=== PATIENT | female | born 1950 | race African-American/Black ===

== ENCOUNTER 2017-03-12 16:59 | Emergency (ER) | payer OTHER ==
[~2017-03-12] VITALS: Ht 157.5 cm; Wt 59.0 kg
[~2017-03-12 16:59] MED LIST: FLEXERIL10 MG PO; ULTRAM(MONOGRAP50 MG PO
--- NOTE | 2017-03-12 18:11 | ED UPPER/LOWER EXTREMITY COMPL ---
History of Present Illness General Chief Complaint: Hip Injury Stated Complaint: RIGHT HIP PAIN Source: patient Exam Limitations: no limitations Vital Signs & Intake/Output Vital Signs & Intake/Output Vital Signs Date Time Temp Pulse Resp B/P B/P Pulse O2 O2 Flow FiO2 Mean Ox Delivery Rate 03/12 2044 98.7 80 18 130/83 99 Room Air 03/12 1721 98.9 80 18 129/80 100 Room Air Allergies Coded Allergies: NO KNOWN ALLERGIES (05/17/16) Reconcile Medications Ampicillin Trihydrate 250 MG CAPSULE 1 CAP PO PRN POST-COITAL (Reported) Cholecalciferol (Vitamin D3) (Vitamin D) (Unknown Strength) CAPSULE (Unknown Dose) PO DAILY SUPPLEMENT (Reported) Cyanocobalamin (Vitamin B-12) (Unknown Strength) TABLET (Unknown Dose) PO DAILY SUPPLEMENT (Reported) Gabapentin 300 MG CAPSULE 1 CAP PO BID NERVE PAIN (Reported) Lisinopril 20 MG TABLET 1 TAB PO DAILY BP (Reported) Metformin HCl 1,000 MG TABLET 1 TAB PO BID DM (Reported) Methocarbamol (Robaxin) 500 MG TABLET 1 TAB PO TID PRN muscle spasms Multivitamin (Multi-Day Vitamins) 1 EACH TABLET 1 TAB PO DAILY SUPPLEMENT ( Reported) Naproxen 500 MG TABLET 1 TAB PO BID PRN inflammation Oxycodone HCl/Acetaminophen (Percocet 5-325 MG Tablet) 5 MG-325 MG TABLET 1 TAB PO BID PRN pain Vitamin E Mixed (Vitamin E) (Unknown Strength) TABLET (Unknown Dose) PO DAILY SUPPLEMENT (Reported) Triage Note: PT TO ED FOR EXACERBATION OF CHRONIC R HIP PAIN, NO NEW INJURY OR TRAUMA. TOOK GABAPENTIN AT HOME WITH NO RELIEF. CORTISONE SHOT APPROX 1 MONTH AGO - HAS HAD AN OUTPATINET MRI ALREADY WELL. Triage Nurses Notes Reviewed? yes Onset: Gradual Duration: worse persistent since (1 DAY) Timing: recent history Severity: severe Severity Numbers: 10 Pain/Injury Location: Right: Hip. Method of Injury: unknown Modifying Factors: Improves With: immobilization. Worsens With: movement. HPI: Patient is a 66-year-old female with history of chronic low back pain and hip pain presenting to the emergency department with chief complaint of worsening right low back pain into the right hip that's been going on for the past 1-2 days. Denies any new injury. Pain is sharp and stabbing and radiating down the right leg. Denies any urinary incontinence or retention. Pain is worse with movement. Has been using [id number] medications like Tylenol without relief. Denies any abdominal pain. No nausea vomiting fevers or chills chest pain or shortness of breath. Denies any urinary frequency urgency or dysuria. No hematuria. (WERNER JAFFE) Past History Travel History Traveled to [place] past 21 day No Medical History Any Pertinent Medical History? 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 No (WERNER JAFFE) Review of Systems Review of Systems Constitutional: Reports: no symptoms. Comments Review of systems: See HPI, All other systems negative. Constitutional, no chills fever or weight loss HEENT: No visual changes no sore throat no congestion Cardiovascular: No chest pain ,palpitation Skin, no jaundice no rashes Respiratory: No dyspnea cough sputum or hemoptysis GI: No nausea no vomiting : No dysuria No hematuria Muscle skeletal: , no neck pain, Neurologic: No numbness no confusion NO MORALES Psych: No INCREASED stress anxiety Immunology: No splenectomy or history of AIDS (WERNER JAFFE) Physical Exam Physical Exam General Appearance: well developed/nourished, alert, awake, mild distress Comments: Well-developed well-nourished person in mild distress HEENT: Nose is atraumatic. External auditory canal and Tympanic membranes clear. Pharynx normal. No swelling or edema. Neck: Supple, no lymphadenopathy, normal range of motion without pain or tenderness no C-spine tenderness. Back: Tender to palpation over the lumbar paraspinal region on the right. Limited range of motion secondary to pain. Positive straight leg raise on the right. Cardiovascular: Regular rate and rhythms no murmurs rubs or gallops, normal JVP Respiratory: Chest nontender. No respiratory distress.breath sounds clear to auscultation bilaterally Abdomen: Soft, nontender nondistended Extremity: No edema, no calf tenderness to palpation, normal and equal pulses. Range of motion of right hip secondary to pain. Pain with right hip flexion and extension. Neuro: Alert oriented x3, motor sensory normal, patellar reflexes are 2+ bilaterally. Skin: No appreciable rash on exposed skin, skin is warm and dry. Psych: Mood and affect is normal, memory and judgment is normal. (WERNER JAFFE) Progress Differential Diagnosis: contusion, dislocation, fracture, sprain, tendon injury Plan of Care: Orders Procedure Date/time Status XRY-HIP 4 VIEWS UNI, RIGHT 03/12 1756 Active Diagnostic Imaging: Viewed by Me: Radiology Read. Discussed w/RAD: Radiology Read. Radiology Impression: PATIENT: KRISS HARRIS PRESENT AGE: 66 PATIENT ACCOUNT NO: [id number] : 48 LOCATION: [facility] ORDERING PHYSICIAN: GORDO DAVIS MD SERVICE DATE: 03/12/17 EXAM TYPE: RAD - XRY-HIP 2-3 VIEWS, RIGHT EXAMINATION: XR HIP, RIGHT CLINICAL INFORMATION: Pain COMPARISON: 10/28/2016 pelvic x-ray TECHNIQUE: 3 views of the right hip. FINDINGS: There is no acute fracture or dislocation of the right hip. The right femoral head is well aligned within the acetabulum. The left hip joint is unremarkable seen on the frontal view of the pelvis. Sacralization of right L5 transverse processes noted. Pelvic phleboliths are seen. IMPRESSION: Unremarkable right hip x-ray. DICTATED BY: DU MIDDLETON MD DATE/TIME DICTATED :03/12/172002 DENTIST PRIVATE PRACTICE:[facility] DATE/TIME TRANSCRIBED:03/12/172002 CONFIDENTIAL, DO NOT COPY WITHOUT APPROPRIATE AUTHORIZATION. < Electronically signed in Other Vendor System> SIGNED BY: DU MIDDLETON MD 03/12/172011 Comments: No acute findings on x-ray. Likely sciatica causing hip pain. She'll follow-up with her primary care physician. Much improvement after by mouth pain medication. (WERNER JAFFE) Departure Departure Time of Disposition: 2024 Disposition: HOME OR SELF CARE Condition: Stable Clinical Impression Primary Impression: Sciatica Qualifiers: Laterality: right Qualified Code: M54.31 - Sciatica, right side Referrals: DIPAK LONG,YESSENIA RUANO MD,JASSI Marquis (PCP/Family) Additional Instructions: Follow-up with your primary care physician as well as your orthopedic call to make an appointment. Take muscle relaxer, pain medication and anti-inflammatory as prescribed. Return for worsening symptoms or concerns. Avoid heavy lifting Departure Forms: Customer Survey General Discharge Information Prescriptions: Current Visit Scripts Naproxen 1 TAB PO BID PRN inflammation #10 TAB Oxycodone HCl/Acetaminophen (Percocet 5-325 MG Tablet) 1 TAB PO BID PRN pain #10 TAB Methocarbamol (Robaxin) 1 TAB PO TID PRN muscle spasms #10 TAB (WERNER JAFFE) PA/NEUROPATHOLOGIST Co-Sign Statement Statement: ED Attending supervision documentation- [X] I saw and evaluated the patient. I have also reviewed all the pertinent lab results and diagnostic results. I agree with the findings and the plan of care as documented in the PA's/NEUROPATHOLOGIST's documentation. [X] I have reviewed the ED Record and agree with the PA's/NEUROPATHOLOGIST's documentation. [] Additions or exceptions (if any) to the PAs/NEUROPATHOLOGIST's note and plan are summarized below: [] (JOSEPHINE LONG,NELLIE)
[2017-03-12] MEDS ORDERED: GABAPENTIN300 M2 PO (19:49)
[2017-03-12] MEDS ORDERED: METFORMIN HCL1000 M1 PO (19:49)
[2017-03-12] MEDS ORDERED: LISINOPRIL20 M1 PO (19:49)
[2017-03-12] MEDS ORDERED: AMPICILLIN TRI250 MG PO (19:50)
[2017-03-12] MEDS ORDERED: MULTI-DAY VITA1 EACH PO (19:50)
[2017-03-12] MEDS ORDERED: VITAMIN E100 UNI2 PO (19:51)
[2017-03-12] MEDS ORDERED: VITAMIN D2000 UNIT PO (19:51)
[2017-03-12] MEDS ORDERED: VITAMIN B-121000 MC3 PO (19:51)
--- NOTE | 2017-03-12 20:12 | RADIOLOGY REPORT ---
EXAMINATION: XR HIP, RIGHT CLINICAL INFORMATION: Pain COMPARISON: 10/28/2016 pelvic x-ray TECHNIQUE: 3 views of the right hip. FINDINGS: There is no acute fracture or dislocation of the right hip. The right femoral head is well aligned within the acetabulum. The left hip joint is unremarkable seen on the frontal view of the pelvis. Sacralization of right L5 transverse processes noted. Pelvic phleboliths are seen. IMPRESSION: Unremarkable right hip x-ray.
[2017-03-12] MEDS ORDERED: NAPROXEN500 M2 PO (20:28)
[2017-03-12] MEDS ORDERED: ROBAXIN500 M1 PO (20:28)
[2017-03-12] MEDS ORDERED: PERCOCET 5-3251 EACH PO (20:28)
[2017-03-12 20:44] VITALS: BP 130/83
== END 2017-03-12 20:44 ==
LOC: ERH 16:59
DX: M54.41 Lumbago with sciatica, right side (principal)
CPT/HCPCS: 73502-RT

== ENCOUNTER → 2017-11-15 | Day surgery (SDC) | payer OTHER ==
[~2017-11-15] VITALS: Ht 154.9 cm; Wt 59.9 kg
[~2017-11-15] MED LIST changes: +AMPICILLIN TRI250 MG PO; +GABAPENTIN300 M2 PO; +LISINOPRIL20 M1 PO; +METFORMIN HCL1000 M1 PO; +MULTI-DAY VITA1 EACH PO; +NAPROXEN500 M2 PO; +PERCOCET 5-3251 EACH PO; +ROBAXIN500 M1 PO; +VITAMIN B-121000 MC3 PO; +VITAMIN D2000 UNIT PO; +VITAMIN E100 UNI2 PO
--- NOTE | 2017-11-15 06:38 | History & Physical Pre-Op ---
General Information and HPI History of Present Illness: Sowmay is a 66-year-old female with a long-standing and worsening complaint of pain to her right forefoot and a painful hammertoe left foot. The patient has undergone an extended course of conservative care, including shoe gear and activity modification, rest, immobilization and courses of NSAIDs. None of this is yielded her any significant relief. The patient presents today for preoperative surgical consultation. Allergies/Medications Allergies: Coded Allergies: NO KNOWN ALLERGIES (05/17/16) Home Med list Ampicillin Trihydrate 250 MG CAPSULE 1 CAP PO PRN POST-COITAL (Reported) Cholecalciferol (Vitamin D3) (Vitamin D) (Unknown Strength) CAPSULE (Unknown Dose) PO DAILY SUPPLEMENT (Reported) Cyanocobalamin (Vitamin B-12) (Unknown Strength) TABLET (Unknown Dose) PO DAILY SUPPLEMENT (Reported) Gabapentin 300 MG CAPSULE 1 CAP PO BID NERVE PAIN (Reported) Lisinopril 20 MG TABLET 1 TAB PO DAILY BP (Reported) Metformin HCl 1,000 MG TABLET 1 TAB PO BID DM (Reported) Methocarbamol (Robaxin) 500 MG TABLET 1 TAB PO TID PRN muscle spasms Multivitamin (Multi-Day Vitamins) 1 EACH TABLET 1 TAB PO DAILY SUPPLEMENT ( Reported) Naproxen 500 MG TABLET 1 TAB PO BID PRN inflammation Oxycodone HCl/Acetaminophen (Percocet 5-325 MG Tablet) 5 MG-325 MG TABLET 1 TAB PO BID PRN pain Vitamin E Mixed (Vitamin E) (Unknown Strength) TABLET (Unknown Dose) PO DAILY SUPPLEMENT (Reported) Past History Medical History Neurological: NONE EENT: NONE Cardiovascular: hypertension Respiratory: NONE Gastrointestinal: diverticulitis Hepatic: cholelithiasis Renal: NONE Musculoskeletal: R SHOULDER ROTATOR CUFF R HIP PAIN Psychiatric: NONE Endocrine: diabetes Blood Disorders: NONE Cancer(s): HAD HYSTERECTOMY FOR "CANCEROUS" BUT NOT SURE WHAT KIND OF 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 Heart sounds rate and rhythm regular. Lower extremity physical exam demonstrates intact pedal pulses bilaterally. Pulses dorsalis pedis and posterior tibial arteries are palpable bilaterally. Patient without any sensory motor deficits. Deep tendon reflexes grossly intact. Patient noted to have same and pain with palpation to the right second digit and pain plantarly at the second metatarsal head. There is also pain noted with palpation or range of motion through the left third digit. Assessment/Plan Assessment/Plan: Painful hammertoes bilaterally. A lengthy discussion reviewing both surgical and conservative options was held with the patient at bedside and the patient elects to go forward with surgery despite the risks. As Ranked By This Provider Problem List: 1. Acquired hammer toe of great toes of both feet Attending MD Review Statement Attending Statement Attending MD Statement: examined this patient
--- NOTE | 2017-11-15 11:00 | Operative Report ---
Operative/Inv Procedure Report Surgery Date: 11/15/17 Name of Procedure: 1 metatarsal osteotomy second ray right foot 2 arthroplasty second toe right foot 3 arthroplasty third toe left foot 4 intraoperative administration of ankle block anesthesia Pre-Operative Diagnosis: 1 metatarsus equinus second ray right foot 2 hammertoe second toe right foot 3 hammertoe third toe left foot Post-Operative Diagnosis: The same Estimated Blood Loss: scant Surgeon/Shale Miner: Erna GRUBER,Herman Castro DPM Anesthesia: moderate sedation, block Operative/Procedure Note Note: After obtaining informed consent the patient was brought to the operating room and placed on the operating table in the supine position. The patient was then securely fastened to the operating table utilizing safety belt. After measures of IV sedation, 10 mL of 0.5% Marcaine plain was infiltrated about the patient's left and right ankles. 2 well-padded ankle tourniquets were placed about the patient's bilateral lower extremities. 2 g of Ancef were delivered intravenously times one dose. The then scrubbed prepped and draped in usual aseptic manner. The right lower extremity was elevated to examine to limb, which point the ankle tourniquet was inflated 250 mmHg. Attention directed dorsal aspect the right foot where a linear incision overlying the proximal phalangeal joint was sized 15 blade. Dissection was then carried down to the extensor tendon which was tenotomized exposing the head of the proximal phalanx. This was then removed with a sagittal bone saw. The extensor tendon was reprepped with 4-0 Vicryl and the skin edges reapproximated 4-0 nylon. Attention was then directed to the distal second ray, where a 4 cm incision was made overlying the metatarsal neck. The dissection was then carried down to the periosteum which incised reflected. A V-type floating wedge osteotomy was then performed. The distal osseous segment was displaced and translated superiorly with respect to the proximal metatarsal. It was then impacted upon the metatarsal shelf. The deep tissues reapproximated with 4-0 Vicryl and the skin edges reapproximated 4-0 nylon. The incisions were then dressed with Xeroform 4 x 4's Kerlix and Augie wrap. Next, the left lower extremity was elevated to examine to limb at which point the ankle tourniquet inflated 250 mg of mercury. Attention directed dorsal aspect of the lef third digit, where 2 transversely oriented semielliptical incisions overlying the proximal phalangeal joint were incised with a 15 blade. Dissection was then carried down to the septae is tissues were the ellipses skin was freed and passed from the operative field. Transverse tenotomy was then performed exposing the head of proximal phalanx. This was then removed sagittal bone saw. The extensor tendon was reprepped with 4-0 Vicryl and the skin edges reapproximated 4-0 nylon. Incision dressed with Xeroform 4 x 4's Kerlix and Augie wrap. The patient was noted to tolerate both procedure and anesthesia well and the patient was transported from the operating room to recovery with vital signs stable and vascular status intact all digits bilateral feet.
== END ==
LOC: STS 03:54
DX: M21.6X1 Other acquired deformities of right foot (principal); M20.42 Other hammer toe(s) (acquired), left foot; M20.41 Other hammer toe(s) (acquired), right foot; I10 Essential (primary) hypertension; E11.9 Type 2 diabetes mellitus without complications; Z79.84 Long term (current) use of oral hypoglycemic drugs
CPT/HCPCS: 88304; 88305; J0131; J0690; J1100; J1885; J2001; J2250; J2405